=== PATIENT | male | born 1940 | race Caucasian/White ===

== ENCOUNTER 2016-09-27 08:52 | Outpatient (RCR) | payer MEDICARE, BC | END 2016-11-05 13:11 | disposition still patient (30) | LOC: PT 08:52 | DX: Z47.89 Encounter for other orthopedic aftercare (principal) ==

== ENCOUNTER 2018-10-09 08:40 | Outpatient (RCR) | payer MEDICARE, BC | END 2018-10-09 09:40 | disposition home or self-care (01) | LOC: CARDREHAB 08:40 | DX: Z48.812 Encounter for surgical aftercare following surgery on the circulatory system (principal); Z95.1 Presence of aortocoronary bypass graft ==